=== PATIENT | male | born 1960 | race African-American/Black ===

== ENCOUNTER 2021-12-08 12:41 | Inpatient (IN) ==
[2021-12-08] MEDS ORDERED: SODIUM CHLORIDE 0.9% 1,000 ML IV STA (14:54)
[2021-12-08 15:49] LABS: Basophils # 0.1 10*3/uL (0.0-0.2); Basophils % 0.7 % (0.0-0.8); Eosinophils # 0.3 10*3/uL (0.0-0.87); Eosinophils % 3.9 % (0.00-10.9); Hematocrit 27.8 VOL% (42.0-52.0); Hemoglobin 9.2 GM/DL (14.0-18.0); Immature Granulocytes % 0.2 %; Immature Granulocytes Absolute 0.02 #; Lymphocytes # 2.7 10*3/uL (1.4-4.0); Lymphocytes % 32.5 % (21.2-54.2); Mean Corpuscular HGB Conc 33.1 GM/DL (32-36); Mean Corpuscular Volume 111.2 FL (87-102); Mean Platelet Volume 9.8 FL (9.6-12.0); Monocytes # 0.5 10*3/uL (0.11-0.8); Monocytes % 6.3 % (1.7-12.7); Neutrophils % 56.4 % (38.7-73.9); Platelet Count 307 T/CUMM (130-400); Red Cell Distribution Width 13.1 % (9.3-17.3); White Blood Count 8.3 T/CUMM (4-12)
[2021-12-08 16:14] LABS: Mucus,Urine Occasional /LPF (Occasional); Squamous Epithelial Cell,Urine Occasional /HPF (0-10)
[2021-12-08 16:15] LABS: Albumin 4.2 G/DL (3.4-5.0); Bilirubin,Total 0.4 MG/DL (0.20-1.00); Calcium 10.5 MG/DL (8.5-10.1); Osmolality,Calculated 320.7 MOS/KG (273-304); Potassium 5.3 MMOL/L (3.5-5.1); Total Protein 8.7 G/DL (6.4-8.2)
[2021-12-08 16:19] LABS: Bilirubin,Urine Negative (Negative); Blood, Urine Moderate mg/dL (Negative); Glucose,Urine (UA) Negative (Negative); Ketones,Urine Negative (Negative); Nitrite,Urine Negative (Negative); Protein,Urine 100 mg/dL (Negative); Urine Appearance Clear (Clear); Urine Color Yellow (Yellow); Urine Specific Gravity 1.025 (1.001-1.035); Urine Urobilinogen 0.2 eU/dL (<2.0); Urine pH 5.5 (4.5-8.0)
[2021-12-08] MEDS ORDERED: NICOTINE 21 MG/24 HR PATCH TRANSDERM PRN (17:07)
[2021-12-08] MEDS ORDERED: ACETAMINOPHEN 325 MG TABLET PO PRN (17:07)
[2021-12-08] MEDS ORDERED: ZALEPLON 5 MG CAPSULE PO PRN (17:07)
[2021-12-08] MEDS ORDERED: diphenhydrAMINE CAP 25 MG CAPSULE PO PRN (17:07)
[2021-12-08] MEDS ORDERED: guaiFENesin/DM ER 600-30 MG TABLET PO PRN (17:07)
[2021-12-08] MEDS ORDERED: GLUCAGON 1 MG VIAL IM PRN (17:07)
[2021-12-08] MEDS ORDERED: DEXTROSE 10% 250 ML BAG IV PRN (17:07)
[2021-12-08] MEDS ORDERED: hydrALAZINE 20 MG/1 ML VIAL IV PRN (17:07)
[2021-12-08 20:10] LABS: Hepatitis B Core IgM Quant 0.13 Index; Hepatitis B Surface Ag Quant < 0.10 Index; Hepatitis B Surface Ag Result Non-Reactive (NonReactive); Hepatitis C Virus Ab Quant < 0.02 Index; Hepatitis C Virus Ab Result Non-Reactive (NonReactive)
[2021-12-08] MEDS: SODIUM CHLORIDE 0.9% 1,000 ML IV SCH (20:47)
[2021-12-08] MEDS: HEPARIN 5,000 UNIT/1 ML VIAL SUBCUT SCH (20:48)
[2021-12-08] MEDS: ONDANSETRON 4 MG/2 ML VIAL IV PRN (20:59)
[2021-12-08 21:17] LABS: Protein/Creatinine Ratio,Urine 1.9 RATIO
[2021-12-08 22:28] LABS: Basophils # 0.1 10*3/uL (0.0-0.2); Basophils % 0.7 % (0.0-0.8); Eosinophils # 0.3 10*3/uL (0.0-0.87); Eosinophils % 3.2 % (0.00-10.9); Hematocrit 26.6 VOL% (42.0-52.0); Hemoglobin 8.3 GM/DL (14.0-18.0); Immature Granulocytes % 0.6 %; Immature Granulocytes Absolute 0.05 #; Lymphocytes % 32.7 % (21.2-54.2); Mean Corpuscular HGB Conc 31.2 GM/DL (32-36); Mean Corpuscular Volume 112.7 FL (87-102); Mean Platelet Volume 9.9 FL (9.6-12.0); Monocytes # 0.5 10*3/uL (0.11-0.8); Neutrophils % 57.8 % (38.7-73.9); Platelet Count 288 T/CUMM (130-400); Red Blood Count 2.36 MC/CUMM (3.8-5.5); Red Cell Distribution Width 13.2 % (9.3-17.3); White Blood Count 9.1 T/CUMM (4-12)
[2021-12-08 23:04] LABS: Vitamin B12 > 2000 PG/ML (211-911)
[2021-12-08 23:33] LABS: Sedimentation Rate-Westergren 132 MM/HR (0-20)
[2021-12-09] MEDS ORDERED: SODIUM ZIRCONIUM CYCLOSILICATE 10 GM PACK PO ONE (00:53)
[2021-12-09 05:51] LABS: Basophils % 0.4 % (0.0-0.8); Eosinophils # 0.3 10*3/uL (0.0-0.87); Eosinophils % 4.1 % (0.00-10.9); Hematocrit 23.4 VOL% (42.0-52.0); Hemoglobin 7.3 GM/DL (14.0-18.0); Immature Granulocytes % 0.6 %; Immature Granulocytes Absolute 0.04 #; Lymphocytes # 1.9 10*3/uL (1.4-4.0); Lymphocytes % 27.8 % (21.2-54.2); Mean Corpuscular HGB Conc 31.2 GM/DL (32-36); Mean Corpuscular Volume 114.7 FL (87-102); Mean Platelet Volume 9.7 FL (9.6-12.0); Monocytes # 0.5 10*3/uL (0.11-0.8); Monocytes % 6.8 % (1.7-12.7); Neutrophils % 60.3 % (38.7-73.9); Platelet Count 241 T/CUMM (130-400); Red Blood Count 2.04 MC/CUMM (3.8-5.5); Red Cell Distribution Width 13.1 % (9.3-17.3); White Blood Count 6.9 T/CUMM (4-12)
[2021-12-09 06:21] LABS: Calcium 9.5 MG/DL (8.5-10.1); Osmolality,Calculated 327.1 MOS/KG (273-304); Potassium 5.3 MMOL/L (3.5-5.1)
[2021-12-09] MEDS: SODIUM CHLORIDE 0.9% 1,000 ML IV SCH ×2 (06:26→18:59)
[2021-12-09] MEDS: PANTOPRAZOLE 40 MG TABLET PO SCH (09:15)
[2021-12-09] MEDS: HEPARIN 5,000 UNIT/1 ML VIAL SUBCUT SCH ×2 (09:15→21:44)
[2021-12-09] MEDS: ONDANSETRON 4 MG/2 ML VIAL IV PRN (15:29)
[2021-12-09 15:38] LABS: Basophils # 0.1 10*3/uL (0.0-0.2); Basophils % 0.9 % (0.0-0.8); Eosinophils # 0.3 10*3/uL (0.0-0.87); Eosinophils % 3.6 % (0.00-10.9); Hematocrit 20.3 VOL% (42.0-52.0); Hemoglobin 6.5 GM/DL (14.0-18.0); Immature Granulocytes % 0.8 %; Immature Granulocytes Absolute 0.06 #; Lymphocytes # 2.3 10*3/uL (1.4-4.0); Lymphocytes % 29.2 % (21.2-54.2); Mean Corpuscular Volume 112.8 FL (87-102); Monocytes # 0.5 10*3/uL (0.11-0.8); Monocytes % 6.3 % (1.7-12.7); Neutrophils % 59.2 % (38.7-73.9); Platelet Count 276 T/CUMM (130-400); Red Cell Distribution Width 13.2 % (9.3-17.3); White Blood Count 7.8 T/CUMM (4-12)
[2021-12-09 16:00] LABS: Calcium 9.8 MG/DL (8.5-10.1); Osmolality,Calculated 322.3 MOS/KG (273-304); Potassium 5.4 MMOL/L (3.5-5.1)
[2021-12-09] MEDS ORDERED: SODIUM CHLORIDE 0.9% 1,000 ML IV PRN (16:08)
[2021-12-09] MEDS: SODIUM ZIRCONIUM CYCLOSILICATE 10 GM PACK PO SCH (21:50)
[2021-12-09 22:01] LABS: Hematocrit 27.4 VOL% (42.0-52.0); Hemoglobin 8.6 GM/DL (14.0-18.0)
[2021-12-10 05:11] LABS: Basophils # 0.1 10*3/uL (0.0-0.2); Basophils % 0.7 % (0.0-0.8); Eosinophils # 0.3 10*3/uL (0.0-0.87); Eosinophils % 4.2 % (0.00-10.9); Hematocrit 25.7 VOL% (42.0-52.0); Hemoglobin 8.1 GM/DL (14.0-18.0); Immature Granulocytes % 0.9 %; Immature Granulocytes Absolute 0.06 #; Lymphocytes # 2.1 10*3/uL (1.4-4.0); Lymphocytes % 30.9 % (21.2-54.2); Mean Corpuscular HGB Conc 31.5 GM/DL (32-36); Mean Corpuscular Volume 105.3 FL (87-102); Mean Platelet Volume 10.5 FL (9.6-12.0); Monocytes # 0.4 10*3/uL (0.11-0.8); Monocytes % 5.5 % (1.7-12.7); Neutrophils % 57.8 % (38.7-73.9); Platelet Count 253 T/CUMM (130-400); Red Blood Count 2.44 MC/CUMM (3.8-5.5); Red Cell Distribution Width 19.3 % (9.3-17.3); White Blood Count 6.9 T/CUMM (4-12)
[2021-12-10 05:32] LABS: Calcium 9.6 MG/DL (8.5-10.1); Osmolality,Calculated 322.1 MOS/KG (273-304); Potassium 5.1 MMOL/L (3.5-5.1)
[2021-12-10] MEDS: SODIUM CHLORIDE 0.9% 1,000 ML IV SCH (07:54)
[2021-12-10] MEDS: PANTOPRAZOLE 40 MG TABLET PO SCH (09:22)
[2021-12-10] MEDS: SODIUM ZIRCONIUM CYCLOSILICATE 10 GM PACK PO SCH ×3 (09:27→21:59)
[2021-12-10] MEDS: HEPARIN 5,000 UNIT/1 ML VIAL SUBCUT SCH ×2 (09:28→21:43)
[2021-12-10] MEDS: SODIUM CHLORIDE 0.45% 1,000 ML IV SCH ×2 (09:32→21:46)
[2021-12-10] MEDS: ONDANSETRON 4 MG/2 ML VIAL IV PRN (10:30)
[2021-12-11 06:00] LABS: Basophils % 0.3 % (0.0-0.8); Eosinophils # 0.2 10*3/uL (0.0-0.87); Eosinophils % 4.1 % (0.00-10.9); Hemoglobin 7.1 GM/DL (14.0-18.0); Immature Granulocytes % 0.5 %; Immature Granulocytes Absolute 0.03 #; Lymphocytes # 1.6 10*3/uL (1.4-4.0); Lymphocytes % 27.9 % (21.2-54.2); Mean Corpuscular HGB Conc 32.3 GM/DL (32-36); Mean Corpuscular Volume 104.8 FL (87-102); Mean Platelet Volume 10.4 FL (9.6-12.0); Monocytes # 0.3 10*3/uL (0.11-0.8); Monocytes % 5.2 % (1.7-12.7); Platelet Count 231 T/CUMM (130-400); Red Cell Distribution Width 18.6 % (9.3-17.3); White Blood Count 5.8 T/CUMM (4-12)
[2021-12-11 06:22] LABS: Calcium 9.3 MG/DL (8.5-10.1); Osmolality,Calculated 320.3 MOS/KG (273-304); Potassium 4.6 MMOL/L (3.5-5.1)
[2021-12-11 07:14] LABS: Phosphorous 6.9 MG/DL (2.5-4.9)
[2021-12-11] MEDS ORDERED: SODIUM CHLORIDE 0.9% 1,000 ML IV PRN (07:30)
[2021-12-11] MEDS: SODIUM CHLORIDE 0.9% 1,000 ML IV SCH (08:47)
[2021-12-11] MEDS: SODIUM ZIRCONIUM CYCLOSILICATE 10 GM PACK PO SCH ×2 (10:37→17:02)
[2021-12-11] MEDS: HEPARIN 5,000 UNIT/1 ML VIAL SUBCUT SCH ×2 (10:37→20:25)
[2021-12-11] MEDS: PANTOPRAZOLE 40 MG TABLET PO SCH (10:37)
[2021-12-11] MEDS: SODIUM CHLORIDE 0.45% 1,000 ML IV SCH (19:50)
[2021-12-11] MEDS: LATANOPROST 0.005% OPH SOLN 2.5 ML BOTTLE BOTH EYES SCH (20:50)
[2021-12-12 05:38] LABS: Basophils % 0.7 % (0.0-0.8); Eosinophils # 0.3 10*3/uL (0.0-0.87); Eosinophils % 4.5 % (0.00-10.9); Hemoglobin 7.9 GM/DL (14.0-18.0); Immature Granulocytes % 0.5 %; Immature Granulocytes Absolute 0.03 #; Lymphocytes # 1.6 10*3/uL (1.4-4.0); Lymphocytes % 28.3 % (21.2-54.2); Mean Corpuscular HGB Conc 32.9 GM/DL (32-36); Mean Corpuscular Volume 100.4 FL (87-102); Mean Platelet Volume 9.9 FL (9.6-12.0); Monocytes # 0.3 10*3/uL (0.11-0.8); Monocytes % 5.8 % (1.7-12.7); Neutrophils % 60.2 % (38.7-73.9); Platelet Count 207 T/CUMM (130-400); Red Blood Count 2.39 MC/CUMM (3.8-5.5); Red Cell Distribution Width 19.8 % (9.3-17.3); White Blood Count 5.5 T/CUMM (4-12)
[2021-12-12] MEDS: SODIUM CHLORIDE 0.45% 1,000 ML IV SCH ×2 (05:45→15:07)
[2021-12-12] MEDS: LEVOTHYROXINE 150 MCG TABLET PO SCH (05:45)
[2021-12-12 05:59] LABS: Osmolality,Calculated 309.7 MOS/KG (273-304); Phosphorous 6.9 MG/DL (2.5-4.9); Potassium 4.4 MMOL/L (3.5-5.1)
[2021-12-12] MEDS: HEPARIN 5,000 UNIT/1 ML VIAL SUBCUT SCH ×2 (08:21→20:17)
[2021-12-12] MEDS: PANTOPRAZOLE 40 MG TABLET PO SCH (08:21)
[2021-12-12] MEDS: allopurinoL 100 MG TABLET PO SCH (08:21)
[2021-12-12] MEDS: ROSUVASTATIN 20 MG TABLET PO SCH (20:17)
[2021-12-12] MEDS: LATANOPROST 0.005% OPH SOLN 2.5 ML BOTTLE BOTH EYES SCH (20:17)
[2021-12-13] MEDS: SODIUM CHLORIDE 0.45% 1,000 ML IV SCH ×3 (00:48→23:29)
[2021-12-13 05:22] LABS: Basophils % 0.4 % (0.0-0.8); Eosinophils # 0.2 10*3/uL (0.0-0.87); Eosinophils % 4.3 % (0.00-10.9); Hematocrit 22.7 VOL% (42.0-52.0); Hemoglobin 7.5 GM/DL (14.0-18.0); Immature Granulocytes % 0.8 %; Immature Granulocytes Absolute 0.04 #; Lymphocytes # 1.3 10*3/uL (1.4-4.0); Lymphocytes % 25.8 % (21.2-54.2); Mean Corpuscular Volume 100.9 FL (87-102); Mean Platelet Volume 10.1 FL (9.6-12.0); Monocytes # 0.3 10*3/uL (0.11-0.8); Monocytes % 5.9 % (1.7-12.7); Neutrophils % 62.8 % (38.7-73.9); Platelet Count 204 T/CUMM (130-400); Red Blood Count 2.25 MC/CUMM (3.8-5.5); Red Cell Distribution Width 19.4 % (9.3-17.3); White Blood Count 4.9 T/CUMM (4-12)
[2021-12-13 05:47] LABS: % Iron Saturation 27.1 % (18-50)
[2021-12-13 05:50] LABS: Albumin 2.8 G/DL (3.4-5.0); Bilirubin,Total 0.4 MG/DL (0.20-1.00); Calcium 8.8 MG/DL (8.5-10.1); Osmolality,Calculated 301.1 MOS/KG (273-304); Potassium 4.1 MMOL/L (3.5-5.1)
[2021-12-13] MEDS: LEVOTHYROXINE 150 MCG TABLET PO SCH (05:53)
[2021-12-13 06:29] LABS: Immunoglobulin A < 31 MG/DL (70-400); Immunoglobulin G 219 MG/DL (700-1600); Immunoglobulin M < 21 MG/DL (40-230)
[2021-12-13] MEDS ORDERED: SODIUM BICARBONATE 50 MEQ/50 ML VIAL IV ONE (07:42)
[2021-12-13] MEDS ORDERED: SODIUM BICARB INJ 50 MEQ in IV BAG 1 EACH IV ONE (08:45)
[2021-12-13] MEDS: HEPARIN 5,000 UNIT/1 ML VIAL SUBCUT SCH ×2 (08:49→20:29)
[2021-12-13] MEDS: allopurinoL 100 MG TABLET PO SCH (08:50)
[2021-12-13] MEDS: PANTOPRAZOLE 40 MG TABLET PO SCH (08:50)
[2021-12-13 09:47] LABS: Hemoglobin A1 (Alkaline) 97.3 % (96.5-98.5); Hemoglobin A2 (Alkaline) 2.7 % (1.5-3.5)
[2021-12-13 10:25] LABS: Immunoglobulin A (Chem) < 31 MG/DL (70-400); Immunoglobulin G (Chem) 219 MG/DL (700-1600)
[2021-12-13 10:26] LABS: Immunoglobulin M (Chem) < 21 MG/DL (40-230)
[2021-12-13 10:26] LABS: Random Urine Protein (Bench) 190 MG/DL (<11.9)
[2021-12-13 10:40] LABS: Albumin (SPE) Rel % 66.5 %; Alpha 1 (SPE) 0.2 G/DL (0.1-0.4); Alpha 1 (SPE) Rel % 2.9 %; Alpha 2 (SPE) 0.9 G/DL (0.4-1.0); Alpha 2 (SPE) Rel % 15.2 %; Beta (SPE) 0.6 G/DL (0.5-1.1); Beta (SPE) Rel % 9.9 %; Gamma (SPE) Rel % 5.5 %
[2021-12-13 10:44] LABS: Gamma (SPE) 0.3 G/DL (0.7-1.7)
[2021-12-13] MEDS: LATANOPROST 0.005% OPH SOLN 2.5 ML BOTTLE BOTH EYES SCH (20:29)
[2021-12-13] MEDS: SODIUM BICARBONATE 650 MG TABLET PO SCH (20:29)
[2021-12-13] MEDS: ROSUVASTATIN 20 MG TABLET PO SCH (20:29)
[2021-12-14 06:02] LABS: Basophils % 0.6 % (0.0-0.8); Eosinophils # 0.2 10*3/uL (0.0-0.87); Eosinophils % 4.2 % (0.00-10.9); Hematocrit 22.7 VOL% (42.0-52.0); Hemoglobin 7.4 GM/DL (14.0-18.0); Immature Granulocytes % 0.8 %; Immature Granulocytes Absolute 0.04 #; Lymphocytes # 1.4 10*3/uL (1.4-4.0); Lymphocytes % 28.2 % (21.2-54.2); Mean Corpuscular HGB Conc 32.6 GM/DL (32-36); Mean Corpuscular Volume 99.1 FL (87-102); Mean Platelet Volume 10.5 FL (9.6-12.0); Monocytes # 0.3 10*3/uL (0.11-0.8); Monocytes % 5.8 % (1.7-12.7); Neutrophils % 60.4 % (38.7-73.9); Platelet Count 210 T/CUMM (130-400); Red Blood Count 2.29 MC/CUMM (3.8-5.5); Red Cell Distribution Width 18.8 % (9.3-17.3)
[2021-12-14] MEDS: LEVOTHYROXINE 150 MCG TABLET PO SCH (06:10)
[2021-12-14 06:25] LABS: Calcium 8.7 MG/DL (8.5-10.1)
[2021-12-14 06:27] LABS: Bacteria,Urine Occasional /HPF (Few); Mucus,Urine Occasional /LPF (Occasional); RBC,Urine 2 /HPF (0-4); Squamous Epithelial Cell,Urine Occasional /HPF (0-10)
[2021-12-14 06:31] LABS: Protein,Urine 30 mg/dL (Negative); Urine Appearance Clear (Clear); Urine Color Light Yellow (Yellow); Urine Specific Gravity 1.015 (1.001-1.035)
[2021-12-14 06:32] LABS: Bilirubin,Urine Negative (Negative); Blood, Urine Moderate mg/dL (Negative); Glucose,Urine (UA) Negative (Negative); Ketones,Urine Negative (Negative); Nitrite,Urine Negative (Negative); Urine Urobilinogen 0.2 eU/dL (<2.0)
[2021-12-14] MEDS: SODIUM BICARBONATE 650 MG TABLET PO SCH ×2 (09:34→21:25)
[2021-12-14] MEDS: FERROUS SULFATE 325 MG TABLET PO SCH (09:35)
[2021-12-14] MEDS: PANTOPRAZOLE 40 MG TABLET PO SCH (09:35)
[2021-12-14] MEDS: allopurinoL 100 MG TABLET PO SCH (09:36)
[2021-12-14] MEDS: HEPARIN 5,000 UNIT/1 ML VIAL SUBCUT SCH ×2 (09:40→21:24)
[2021-12-14 12:51] LABS: Myeloperoxidase Antibody < 0.2 U
[2021-12-14 13:32] LABS: Kappa Free Light Chain 762 mg/dL
[2021-12-14] MEDS: SODIUM CHLORIDE 0.45% 1,000 ML IV SCH ×2 (19:26→21:32)
[2021-12-14] MEDS: ROSUVASTATIN 20 MG TABLET PO SCH (21:25)
[2021-12-14] MEDS: ONDANSETRON 4 MG/2 ML VIAL IV PRN (21:31)
[2021-12-14] MEDS: LATANOPROST 0.005% OPH SOLN 2.5 ML BOTTLE BOTH EYES SCH (21:32)
[2021-12-15] MEDS: LEVOTHYROXINE 150 MCG TABLET PO SCH (05:21)
[2021-12-15 05:54] LABS: Basophils % 0.4 % (0.0-0.8); Eosinophils # 0.3 10*3/uL (0.0-0.87); Eosinophils % 5.2 % (0.00-10.9); Hematocrit 23.8 VOL% (42.0-52.0); Hemoglobin 7.7 GM/DL (14.0-18.0); Immature Granulocytes % 0.6 %; Immature Granulocytes Absolute 0.03 #; Lymphocytes # 1.5 10*3/uL (1.4-4.0); Lymphocytes % 28.3 % (21.2-54.2); Mean Corpuscular HGB Conc 32.4 GM/DL (32-36); Mean Corpuscular Volume 99.6 FL (87-102); Mean Platelet Volume 10.2 FL (9.6-12.0); Monocytes # 0.3 10*3/uL (0.11-0.8); Monocytes % 5.4 % (1.7-12.7); Neutrophils % 60.1 % (38.7-73.9); Platelet Count 194 T/CUMM (130-400); Red Blood Count 2.39 MC/CUMM (3.8-5.5); Red Cell Distribution Width 18.6 % (9.3-17.3); White Blood Count 5.2 T/CUMM (4-12)
[2021-12-15 06:28] LABS: Osmolality,Calculated 301.1 MOS/KG (273-304); Phosphorous 5.4 MG/DL (2.5-4.9); Potassium 4.2 MMOL/L (3.5-5.1)
[2021-12-15] MEDS ORDERED: MAGNESIUM SULF RIDER 4 GM/100 ML PREMIX IV PRN (07:34)
[2021-12-15] MEDS ORDERED: MAGNESIUM SULF RIDER 2 GM/50 ML PREMIX IV PRN (07:34)
[2021-12-15] MEDS: PANTOPRAZOLE 40 MG TABLET PO SCH (09:49)
[2021-12-15] MEDS: allopurinoL 100 MG TABLET PO SCH (09:49)
[2021-12-15] MEDS: SODIUM BICARBONATE 650 MG TABLET PO SCH ×2 (09:49→21:30)
[2021-12-15] MEDS: FERROUS SULFATE 325 MG TABLET PO SCH (09:50)
[2021-12-15] MEDS: HEPARIN 5,000 UNIT/1 ML VIAL SUBCUT SCH ×2 (09:51→21:30)
[2021-12-15] MEDS ORDERED: SODIUM BICARBONATE 50 MEQ/50 ML VIAL IV ONE (10:20)
[2021-12-15] MEDS ORDERED: SODIUM BICARB INJ 50 MEQ in IV BAG 1 EACH IV ONE (11:00)
[2021-12-15] MEDS: SODIUM CHLORIDE 0.45% 1,000 ML IV SCH ×2 (13:24→22:25)
[2021-12-15] MEDS: ROSUVASTATIN 20 MG TABLET PO SCH (21:30)
[2021-12-15] MEDS: LATANOPROST 0.005% OPH SOLN 2.5 ML BOTTLE BOTH EYES SCH (22:25)
[2021-12-16] MEDS: SODIUM CHLORIDE 0.45% 1,000 ML IV SCH ×3 (03:21→22:05)
[2021-12-16 05:31] LABS: Basophils % 0.6 % (0.0-0.8); Eosinophils # 0.3 10*3/uL (0.0-0.87); Eosinophils % 5.2 % (0.00-10.9); Hematocrit 21.6 VOL% (42.0-52.0); Hemoglobin 7.2 GM/DL (14.0-18.0); Immature Granulocytes % 0.4 %; Immature Granulocytes Absolute 0.02 #; Lymphocytes # 1.4 10*3/uL (1.4-4.0); Lymphocytes % 28.6 % (21.2-54.2); Mean Corpuscular HGB Conc 33.3 GM/DL (32-36); Mean Corpuscular Volume 99.5 FL (87-102); Mean Platelet Volume 9.9 FL (9.6-12.0); Monocytes # 0.3 10*3/uL (0.11-0.8); Monocytes % 5.8 % (1.7-12.7); Neutrophils % 59.4 % (38.7-73.9); Platelet Count 186 T/CUMM (130-400); Red Blood Count 2.17 MC/CUMM (3.8-5.5); Red Cell Distribution Width 18.3 % (9.3-17.3)
[2021-12-16] MEDS: LEVOTHYROXINE 150 MCG TABLET PO SCH (05:45)
[2021-12-16 05:52] LABS: Anisocytosis Slight; Platelet Estimate Decreased
[2021-12-16 05:58] LABS: Calcium 8.7 MG/DL (8.5-10.1); Osmolality,Calculated 296.4 MOS/KG (273-304)
[2021-12-16 09:05] LABS: PT Patient Result 11.4 SECS (10.1-12.1)
[2021-12-16] MEDS: SODIUM BICARBONATE 650 MG TABLET PO SCH ×2 (09:10→20:47)
[2021-12-16] MEDS: HEPARIN 5,000 UNIT/1 ML VIAL SUBCUT SCH (09:10)
[2021-12-16] MEDS: allopurinoL 100 MG TABLET PO SCH (09:10)
[2021-12-16] MEDS: PANTOPRAZOLE 40 MG TABLET PO SCH (09:10)
[2021-12-16] MEDS: FERROUS SULFATE 325 MG TABLET PO SCH (09:10)
[2021-12-16] MEDS: DEXAMETHASONE 4 MG TABLET PO SCH (09:37)
[2021-12-16] MEDS ORDERED: HEPARIN 5,000 UNIT/1 ML VIAL ONE (09:57)
[2021-12-16] MEDS ORDERED: MAGNESIUM SULF INJ 3 GM in SODIUM CHLORIDE 0.9% 100 ML IV ONE (11:05)
[2021-12-16] MEDS: MAGNESIUM SULF RIDER 1 GM/100 ML PREMIX IV SCH ×3 (12:15→14:58)
[2021-12-16] MEDS: amLODIPine 5 MG TABLET PO SCH (15:00)
[2021-12-16] MEDS: LATANOPROST 0.005% OPH SOLN 2.5 ML BOTTLE BOTH EYES SCH (20:47)
[2021-12-16] MEDS: ROSUVASTATIN 20 MG TABLET PO SCH (20:47)
[2021-12-17] MEDS: LEVOTHYROXINE 150 MCG TABLET PO SCH (05:59)
[2021-12-17] MEDS: DEXAMETHASONE 4 MG TABLET PO SCH (09:45)
[2021-12-17] MEDS: amLODIPine 5 MG TABLET PO SCH (09:45)
[2021-12-17] MEDS: allopurinoL 100 MG TABLET PO SCH (09:45)
[2021-12-17] MEDS: PANTOPRAZOLE 40 MG TABLET PO SCH (09:45)
[2021-12-17] MEDS: HEPARIN 5,000 UNIT/1 ML VIAL SUBCUT SCH ×2 (09:45→21:29)
[2021-12-17] MEDS: SODIUM BICARBONATE 650 MG TABLET PO SCH ×2 (09:45→21:28)
[2021-12-17] MEDS: FERROUS SULFATE 325 MG TABLET PO SCH (09:45)
[2021-12-17] MEDS: SODIUM CHLORIDE 0.45% 1,000 ML IV SCH (11:30)
[2021-12-17 11:35] LABS: Basophils % 0.1 % (0.0-0.8); Eosinophils % 0.3 % (0.00-10.9); Hematocrit 24.1 VOL% (42.0-52.0); Hemoglobin 8.2 GM/DL (14.0-18.0); Immature Granulocytes % 0.9 %; Immature Granulocytes Absolute 0.06 #; Lymphocytes % 15.5 % (21.2-54.2); Mean Corpuscular Volume 99.6 FL (87-102); Mean Platelet Volume 10.6 FL (9.6-12.0); Monocytes # 0.4 10*3/uL (0.11-0.8); Monocytes % 5.2 % (1.7-12.7); Platelet Count 222 T/CUMM (130-400); Red Blood Count 2.42 MC/CUMM (3.8-5.5); Red Cell Distribution Width 18.4 % (9.3-17.3); White Blood Count 6.7 T/CUMM (4-12)
[2021-12-17 12:00] LABS: Calcium 9.3 MG/DL (8.5-10.1); Osmolality,Calculated 290.5 MOS/KG (273-304); Potassium 3.8 MMOL/L (3.5-5.1)
[2021-12-17] MEDS: LATANOPROST 0.005% OPH SOLN 2.5 ML BOTTLE BOTH EYES SCH (21:28)
[2021-12-17] MEDS: ROSUVASTATIN 20 MG TABLET PO SCH (21:28)
[2021-12-18] MEDS: SODIUM CHLORIDE 0.45% 1,000 ML IV SCH
[2021-12-18] MEDS: LEVOTHYROXINE 150 MCG TABLET PO SCH (05:42)
[2021-12-18 06:51] LABS: Basophils % 0.1 % (0.0-0.8); Hematocrit 21.4 VOL% (42.0-52.0); Hemoglobin 7.2 GM/DL (14.0-18.0); Immature Granulocytes % 0.7 %; Immature Granulocytes Absolute 0.05 #; Lymphocytes # 0.8 10*3/uL (1.4-4.0); Lymphocytes % 12.1 % (21.2-54.2); Mean Corpuscular HGB Conc 33.6 GM/DL (32-36); Mean Corpuscular Volume 98.6 FL (87-102); Mean Platelet Volume 10.6 FL (9.6-12.0); Monocytes # 0.4 10*3/uL (0.11-0.8); Monocytes % 6.1 % (1.7-12.7); Platelet Count 209 T/CUMM (130-400); Red Blood Count 2.17 MC/CUMM (3.8-5.5); White Blood Count 6.7 T/CUMM (4-12)
[2021-12-18 07:16] LABS: Calcium 8.8 MG/DL (8.5-10.1); Osmolality,Calculated 299.4 MOS/KG (273-304); Potassium 4.2 MMOL/L (3.5-5.1)
[2021-12-18] MEDS: DEXAMETHASONE 4 MG TABLET PO SCH (08:24)
[2021-12-18] MEDS: SODIUM BICARBONATE 650 MG TABLET PO SCH ×2 (08:25→21:17)
[2021-12-18] MEDS: PANTOPRAZOLE 40 MG TABLET PO SCH (08:26)
[2021-12-18] MEDS: allopurinoL 100 MG TABLET PO SCH (08:26)
[2021-12-18] MEDS: amLODIPine 5 MG TABLET PO SCH (08:26)
[2021-12-18] MEDS: FERROUS SULFATE 325 MG TABLET PO SCH (08:26)
[2021-12-18] MEDS: HEPARIN 5,000 UNIT/1 ML VIAL SUBCUT SCH ×2 (08:27→21:18)
[2021-12-18] MEDS: LACTATED RINGERS 1,000 ML IV SCH (10:05)
[2021-12-18] MEDS: ROSUVASTATIN 20 MG TABLET PO SCH (21:17)
[2021-12-18] MEDS: LATANOPROST 0.005% OPH SOLN 2.5 ML BOTTLE BOTH EYES SCH (21:17)
[2021-12-19] MEDS: LACTATED RINGERS 1,000 ML IV SCH ×3 (05:30→21:05)
[2021-12-19] MEDS: LEVOTHYROXINE 150 MCG TABLET PO SCH (05:48)
[2021-12-19 05:50] LABS: Basophils % 0.2 % (0.0-0.8); Hematocrit 21.5 VOL% (42.0-52.0); Hemoglobin 7.2 GM/DL (14.0-18.0); Immature Granulocytes Absolute 0.06 #; Lymphocytes # 0.8 10*3/uL (1.4-4.0); Lymphocytes % 13.4 % (21.2-54.2); Mean Corpuscular HGB Conc 33.5 GM/DL (32-36); Mean Corpuscular Volume 98.6 FL (87-102); Mean Platelet Volume 10.2 FL (9.6-12.0); Monocytes # 0.4 10*3/uL (0.11-0.8); Monocytes % 6.5 % (1.7-12.7); Neutrophils % 78.9 % (38.7-73.9); Platelet Count 209 T/CUMM (130-400); Red Blood Count 2.18 MC/CUMM (3.8-5.5); Red Cell Distribution Width 18.6 % (9.3-17.3); White Blood Count 6.2 T/CUMM (4-12)
[2021-12-19 06:05] LABS: Calcium 8.7 MG/DL (8.5-10.1); Osmolality,Calculated 304.4 MOS/KG (273-304); Potassium 4.2 MMOL/L (3.5-5.1)
[2021-12-19] MEDS: SODIUM BICARBONATE 650 MG TABLET PO SCH ×4 (10:15→21:04)
[2021-12-19] MEDS: HEPARIN 5,000 UNIT/1 ML VIAL SUBCUT SCH ×2 (10:36→21:04)
[2021-12-19] MEDS: PANTOPRAZOLE 40 MG TABLET PO SCH (10:39)
[2021-12-19] MEDS: allopurinoL 100 MG TABLET PO SCH (10:39)
[2021-12-19] MEDS: FERROUS SULFATE 325 MG TABLET PO SCH (10:39)
[2021-12-19] MEDS: amLODIPine 10 MG TABLET PO SCH (10:39)
[2021-12-19] MEDS ORDERED: SODIUM BICARBONATE 650 MG TABLET PO SCH (15:00)
[2021-12-19] MEDS: ROSUVASTATIN 20 MG TABLET PO SCH (21:04)
[2021-12-19] MEDS: LATANOPROST 0.005% OPH SOLN 2.5 ML BOTTLE BOTH EYES SCH (21:05)
[2021-12-20] MEDS: LACTATED RINGERS 1,000 ML IV SCH ×2 (02:10→13:55)
[2021-12-20 05:52] LABS: Basophils % 0.4 % (0.0-0.8); Eosinophils # 0.2 10*3/uL (0.0-0.87); Eosinophils % 2.5 % (0.00-10.9); Immature Granulocytes % 0.9 %; Immature Granulocytes Absolute 0.07 #; Lymphocytes # 1.8 10*3/uL (1.4-4.0); Lymphocytes % 23.4 % (21.2-54.2); Mean Corpuscular HGB Conc 33.3 GM/DL (32-36); Mean Corpuscular Volume 99.3 FL (87-102); Mean Platelet Volume 10.3 FL (9.6-12.0); Monocytes # 0.6 10*3/uL (0.11-0.8); Monocytes % 7.1 % (1.7-12.7); Neutrophils % 65.7 % (38.7-73.9); Platelet Count 266 T/CUMM (130-400); Red Blood Count 2.72 MC/CUMM (3.8-5.5); Red Cell Distribution Width 18.7 % (9.3-17.3); White Blood Count 7.7 T/CUMM (4-12)
[2021-12-20 06:18] LABS: Calcium 8.8 MG/DL (8.5-10.1); Osmolality,Calculated 308.1 MOS/KG (273-304); Potassium 4.1 MMOL/L (3.5-5.1)
[2021-12-20] MEDS: LEVOTHYROXINE 150 MCG TABLET PO SCH (06:30)
[2021-12-20] MEDS: amLODIPine 10 MG TABLET PO SCH (09:41)
[2021-12-20] MEDS: FERROUS SULFATE 325 MG TABLET PO SCH (09:41)
[2021-12-20] MEDS: PANTOPRAZOLE 40 MG TABLET PO SCH (09:41)
[2021-12-20] MEDS: allopurinoL 100 MG TABLET PO SCH (09:41)
[2021-12-20] MEDS: SODIUM BICARBONATE 650 MG TABLET PO SCH ×2 (09:42→16:14)
[2021-12-20] MEDS: HEPARIN 5,000 UNIT/1 ML VIAL SUBCUT SCH (09:42)
[2021-12-20] MEDS ORDERED: DEXAMETHASONE INJ 10 MG in SODIUM CHLORIDE 0.9% 50 ML IV ONE (11:30)
[2021-12-20] MEDS ORDERED: SODIUM CHLORIDE 0.9% IV ONE (12:00)
[2021-12-20] MEDS ORDERED: CYCLOPHOSPHAMIDE IV ONE (12:00)
[2021-12-20] MEDS ORDERED: GRANISETRON 1 MG/1 ML VIAL IV SCH (12:45)
[2021-12-20 15:52] VITALS: BP 174/80
== END 2021-12-20 16:35 | disposition home health service (06) | DRG 841 ==
LOC: N.ED 12:41 → SUATTDRO 17:08 → N.EDINP 17:08 → N.5E 18:21 → N.TELES 12-20 00:31
PROVIDERS: ADMIT Internal Medicine Geriatric Medicine; ATTEND Internal Medicine